=== PATIENT | female | born 1965 | race Caucasian/White ===

== ENCOUNTER 2016-05-25 15:22 | Observation (INO) | payer OTHER ==
[2016-05-25] VITALS (10 sets, daily range): BP systolic 102–160; BP diastolic 49–112; PULSE 81–109; RESP 12–18; O2SAT 95–100
[~2016-05-25] VITALS: Ht 157.5 cm; Wt 90.0 kg
[~2016-05-25 15:22] MED LIST: Dexamethasone 4 mg/mL Inj ONE; Glycopyrrolate 0.2 MG/ML 1mL Inj ONE; HYDR25TA4 PO; LISI-567 PO; MetoCLOpramide 5 mg/mL 2 mL Inj ONE; Neostigmine 1 mg/mL 10 mL Inj ONE; Ondansetron 2 mg/mL 2 mL Inj ONE; Phenylephrine 10,000 mCg/mL Inj ONE; Propofol 10,000 mCg/mL 20 mL Inj ONE; Rocuronium 10 mg/mL 5 mL Inj ONE; fentaNYL-PF 50 mCg/mL 2 mL Inj ONE
[2016-05-25 15:57] LABS: BASOPHILS % (AUTO) 0.1 % (0-3); EOSINOPHILS % (AUTO) 0.3 % (0-5); MONOCYTES % (AUTO) 7.5 % (4-12); Mean Corpuscular Hemoglobin 28.6 pg (27.0-35.0); Mean Corpuscular Volume 84.2 fL (81-100); NEUTROPHILS % (AUTO) 75.4 % (40-74); Platelet Count 302 bil/L (150-400)
--- NOTE | 2016-05-25 16:17 | DRSVH ---
PROCEDURE: X-RAY CHEST ONE VIEW, PORTABLE ([id number]) INDICATIONS: CHEST PAIN TECHNIQUE: One view of the chest was acquired. COMPARISON: [facility], , CHEST 1VW (PORTABLE), 02/08/2013, 20:24. FINDINGS: Surgical changes and devices: None. Lungs and pleura: Aeration of the lungs is similar to the prior study. There may be mild left basila r scarring/atelectasis. No focal consolidation, effusion, or pneumothorax is evident. Mediastinum: Mediastinal contours appear normal. Heart size is normal. Bones and chest wall: No suspicious bony lesions. Overlying soft tissues appear unremarkable. IMPRESSION: Stable chest. No acute cardiopulmonary process is evident. Dictated by: Haroon Chatman M.D. on 05/25/2016 at 15:15 Approved by: Haroon Chatman M.D. on 05/25/2016 at 15:16
[2016-05-25 16:32] LABS: TROPONIN T 0.01 ug/L (0.0-0.011)
--- NOTE | 2016-05-25 16:37 | ED.REPORT ---
HPI-Chest Pain 40 and Over Date of Service May 25, 2016 ED Provider: Kelton Moreno DO Pt is a healthy 51 y/o female w/ a hx of HTN, presenting to the ED c/o epigastric abdominal pain with radiation to the chest onset today. She experienced several episodes of nausea and vomiting 2 days ago. Pt denies fever , chills, SOB, CP. She has never experienced heartburn before. Nursing Notes Stated Complaint: CHEST PAIN, NAUSEA Chief Complaint: Dysrhythmia/Cardiac Nursing Notes Reviewed: Yes Allergies: Coded Allergies: No Known Allergies (Verified Allergy, Unknown, 05/25/16) Scheduled Hydrochlorothiazide (Hydrochlorothiazide) 25 Mg Tablet 25 MG PO DAILY Lisinopril (Lisinopril) 20 Mg Tablet 20 MG PO DAILY General Time Seen by MD: 16:35 Chief Complaint Other (Epigastric pain) Hx Obtained From: Patient Arrived By: Walk-in Sudden in Onset?: No Onset Occurred: 5 - 8 hours ago Symptom Duration: Since onset Location: : Epigastric Quality: Painful Severity: Current: Moderate Severity: Maximum: Moderate Similar Sx Previous: No Past Medical History Past Medical History Hypertension LBBB Past Surgical History Tonsillectomy Smoking History Never Smoker Ambulatory Status Independent Review of Systems Constitutional: Denies: Chills, Fever Respiratory: Denies: Non-productive cough, Shortness of breath Cardiovascular: Denies: Chest pain, Dyspnea on exertion GI: Reports: Abdominal pain, Nausea, Vomiting, Denies: Diarrhea Complete sys rev & neg: except as marked. Physical Exam Initial Vital Signs Vital Signs (First) Date Time Temp Pulse Resp B/P Pulse Ox O2 Delivery O2 Flow Rate FiO2 05/25/16 15:30 36.7 109 18 160/112 98 Room Air Initial VS: Reviewed, Vital signs abnormal Head / Eyes: Atraumatic, Normocephalic, PERRL ENT: Mucous membranes moist, Conjunctiva normal, No scleral icterus Neck: Supple, Full range of motion Extremities: Vascular intact, Neuro intact, No swelling, No tenderness Skin: Warm, Dry, No cyanosis Neurologic: Alert, Oriented, Nonfocal Psychiatric: Mood/affect normal, Behavior normal, Normal thought content General/Constitutional: Awake, Alert, No acute distress, Cooperative, Not toxic appearing Respiratory / Chest: Atraumatic, Breath sounds NL, Breath sounds = bilat, No respiratory distress, No rales, No rhonchi, No wheezing, No retractions, No stridor, No chest tenderness, No chest wall deformity, No crepitus Cardiovascular: Heart rate NL, Regular rhythm, Heart sounds NL, No gallop, No murmurs, No rubs, Cap refill not delayed, Peripheral circulation NL Abdomen: Atraumatic, Soft, No guarding, No rebound, No distention, No palpable mass Upper abdominal tenderness Interpretation & Diagnostics Lab Results Interpretation Result Diagram: 05/25/16 1552 05/25/16 1552 Test 05/25/16 15:52 White Blood Count 17.3th/mm3 (3.8-10.1) Red Blood Count 5.25mil/mm3 (3.90-5.20) Hemoglobin 15.0g/dL (12.0-15.6) Hematocrit 44.2% (35.0-46.0) Mean Corpuscular Volume 84.2fL (81-100) Mean Corpuscular Hemoglobin 28.6pg (27.0-35.0) Mean Corpuscular Hemoglobin Concent 33.9% (32.0-37.0) Red Cell Distribution Width 13.4% (12.3-15.4) Platelet Count 302bil/L (150-400) Neutrophils (%) (Auto) 75.4% (40-74) Lymphocytes (%) (Auto) 16.5% (14-46) Monocytes (%) (Auto) 7.5% (4-12) Eosinophils (%) (Auto) 0.3% (0-5) Basophils (%) (Auto) 0.1% (0-3) Sodium Level 138mEq/L (134-144) Potassium Level 3.5mEq/L (3.5-5.2) Chloride Level 95mEq/L (97-108) Carbon Dioxide Level 26mmol/L (18-29) Blood Urea Nitrogen 15mg/dL (6-24) Creatinine 0.89mg/dL (0.57-1.00) Estimat Glomerular Filtration Rate 96mL/min (>59) Glucose Level 126mg/dL (60-99) Calcium Level 10.2mg/dL (8.5-10.1) Magnesium Level 2.0mg/dL (1.6-2.6) Total Bilirubin 0.8mg/dL (0.0-1.2) Aspartate Amino Transf (AST/SGOT) 12U/L (0-50) Alanine Aminotransferase (ALT/SGPT) 13U/L (0-32) Alkaline Phosphatase 83U/L (25-150) Troponin T 0.010ug/L (0.0-0.011) Total Protein 8.6g/dL (6.4-8.4) Albumin 4.5g/dL (3.4-5.0) Lipase 19U/L (13-60) Hold Chaudhry Top Tube Received (Received) ECG Interpretation ECG Interpretation: Sinus rhythm rate 92 LBBB No change from EKG from 2012 Time: 16:59 Interpreted by: ED physician Normal ECG Interpretation: No acute ischemic changes, No change from prior ECGs X-Ray Chest Interpretation Chest Xray Interpretation: IMPRESSION: Stable chest. No acute cardiopulmonary process is evident. Dictated by: Haroon Chatman M.D. on 05/25/2016 at 15:15 Approved by: Haroon Chatman M.D. on 05/25/2016 at 15:16 View: Portable, 1 view Interpretation / Wet Read by: Interpret - Radiologist CT Abd / Pelvis Interpretation IMPRESSION: 1. Cholelithiasis and findings suspicious for acute cholecystitis. 2. Normal appendix. 3. Diverticulosis. No acute diverticulitis. These findings were discussed with Dr. Whitley at 5:52 PM on 05/25/16. Dictated by: Aletha Merida M.D. on 05/25/2016 at 17:48 Approved by: Aletha Merida M.D. on 05/25/2016 at 17:57 Study type: Abdominal CT IV contrast Interpretation / Wet Read by: Interpret - Radiologist, Discussed w radiologist Re-Eval/Medical Decision Med Decision/Clinical Course Acute cholecystitis will be admitted. Time of Eval: 17:58 Re-Evaluation/Progress Note: Pt rechecked. Informed pt of need for admission for surgical management. Pt understands and agrees with plan for admission. All questions addressed. Consultation : Referral / Consult Name: Gonzalez Christopher MD Consulted With: Surgeon Call Returned at: 17:59 Mailing Machine Helper: Will see patient, Agrees with eval, Agrees with plan, Accepts admit Counseled Regarding: Diagnosis, Lab results, Need for admission Discharge & Departure Primary Impression: Acute cholecystitis Disposition: ADMITTED TO HOSPITAL Discharge Condition All VS Reviewed: Yes Condition: Stable Referrals: Migue Burnham MD (PCP) Scribe Attestation Portions of this note were transcribed by Felice Stokes. I, Dr. Moreno, personally performed the history, physical exam and medical decision-making; I reviewed and confirmed the accuracy of the information in the transcribed note. Signed by Vani Escobar, 05/25/16 - [id number] copies to: Migue Burnham MD, Timothy S DO May 25, 2016 16:37 FELICE STOKES May 25, 2016 16:43
[2016-05-25] MEDS ORDERED: Ondansetron 2 mg/mL 2 mL Inj IVPUSH PRN ×4 (16:45→22:45)
[2016-05-25] MEDS ORDERED: 0.9% Sodium Chloride 1,000 ML IV ONE (16:45)
[2016-05-25] MEDS ORDERED: LidocaineVisc 2%:Antacid 1:1 10 mL Syringe PO ONE (16:45)
[2016-05-25] MEDS ORDERED: diphenhydrAMINE 2.5 mg/mL 5 mL Syrup ONE (16:51)
[2016-05-25] MEDS ORDERED: Alum-Mag Hydrox-Simeth 30 mL Suspension ONE (16:51)
--- NOTE | 2016-05-25 17:59 | DRSVH ---
PROCEDURE: CT ABDOMEN AND PELVIS WITH CONTRAST ([id number]) INDICATIONS: upper abd pain, leukocytosis TECHNIQUE: After the administration of intravenous contrast, 5 mm thick sections acquired from the diaphragm to the symphysis. 5 mm coronal and sagittal reformats were acquired. For radiation dose reduction, the following was used: automated exposure control, adjustment of mA and/or kV according to patient siz e. COMPARISON: None. FINDINGS: Image quality: Excellent. ABDOMEN: Lung bases: Lung bases are clear. Heart size is normal. Solid organs: Liver and spleen are normal in size and enhancement. Gallbladder wall measures up to 10 mm in thickness. There is a moderate amount of pericholecystic fat stranding at the gallbladder fu ndus. A lamellated calcified 2.7 cm diameter stone is present in the gallbladder fundus. Biliary sys tem is non dilated. Pancreas enhances normally. No adrenal nodules. Kidneys demonstrate normal siz e and enhancement, without hydronephrosis. Peritoneum and bowel: Bowel loops demonstrate normal wall thickness and caliber. The appendix is thi n walled and gas filled. There are extensive sigmoid colon diverticular outpouchings there is no muco lora thickening or pericolonic fat stranding to suggest acute diverticulitis. No free fluid or air. Nodes and vessels: No retroperitoneal or mesenteric adenopathy by size criteria. Aorta and inferior vena cava are normal in size. Miscellaneous: No ventral hernias. PELVIS: Genitourinary: Bladder wall thickness is normal. Uterus and ovaries are grossly unremarkable. Miscellaneous: No inguinal hernias or adenopathy. Bones: No suspicious bony lesions. No vertebral body compression fractures. IMPRESSION: 1. Cholelithiasis and findings suspicious for acute cholecystitis. 2. Normal appendix. 3. Diverticulosis. No acute diverticulitis. These findings were discussed with Dr. Whitley at 5:52 PM on 05/25/16. Dictated by: Aletha Merida M.D. on 05/25/2016 at 17:48 Approved by: Aletha Merida M.D. on 05/25/2016 at 17:57
[2016-05-25] MEDS ORDERED: metroNIDAZOLE Inj 1,000 MG in IV Premix 1 EACH IV ONE (18:10)
[2016-05-25] MEDS ORDERED: levoFLOXacin Inj 750 MG in IV Premix 1 EACH IV ONE (18:10)
[2016-05-25] MEDS: 0.9% Sodium Chloride 1,000 ML IV SCH (19:26)
[2016-05-25] MEDS ORDERED: Alum-Mag Hydrox-Simeth 30 mL Suspension PO PRN (19:30)
--- NOTE | 2016-05-25 19:40 | HP ---
[address] [address] HISTORY AND PHYSICAL PATIENT: EDIE WINN : 1965 MR#: [id number] ADMIT: 05/25/2016 JOB ID: [id number] DATE: 05/25/2016 CHIEF COMPLAINT: Abdominal pain. HISTORY OF PRESENT ILLNESS: The patient is a 51-year-old woman who presented to the emergency department today with worsening upper abdominal pain. Her pain started fairly suddenly on Monday and has persisted since that time. Initially, she thought she had food poisoning as she had pain in the epigastrium, but it was associated with profuse vomiting. She had trouble keeping anything down by mouth. The pain and vomiting persisted and then today she has not had any more emesis, but the pain is characterized as a band across her upper abdomen and lower chest. She has had difficulty taking deep breaths. She continues to have nausea and diminished appetite. She has had some chills, but has not had documented fevers. She has never been jaundiced. She has had mild indigestion over the years but no documented episodes of persistent pain like this. She was evaluated with a CT scan of the abdomen and pelvis with contrast. This showed findings consistent with acute cholecystitis. She had a large 2.7 cm lamellated calcified gallstone and marked gallbladder wall thickening to 10 mm with pericholecystic fat stranding. There was extensive sigmoid diverticula but no other acute findings. PAST MEDICAL HISTORY: Hypertension. PAST SURGICAL HISTORY: None. MEDICATIONS: 1. Hydrochlorothiazide. 2. Lisinopril. ALLERGIES: No known drug allergies. SOCIAL HISTORY: She works as a caregiver. She denies tobacco use. She drinks approximately one alcoholic beverage per week and denies illicit drug use. FAMILY HISTORY: Positive for gallstones. REVIEW OF SYSTEMS: A 10-point review of systems is negative except as described in history of present illness. PHYSICAL EXAMINATION: Body mass index is 36.3, temperature 36.7, pulse 109, respirations 18, blood pressure 160/112, saturation 98% on room air. In general, she is mildly flushed but in no acute distress. HEENT: Sclerae are anicteric. Mucous membranes are moist. Neck: No lymphadenopathy. Chest: Clear to auscultation bilaterally. Heart: Tachycardia, no murmurs. Abdomen: Obese, nondistended. She has tenderness in the right upper quadrant but no involuntary guarding. There are no palpable masses and there are no hernias. Extremities: No edema. Neuro: No deficits. Psychiatric: Affect is appropriate. LABORATORIES: White count is 17.3, hematocrit 44.2, platelets 302, creatinine 0.89, glucose 126, bilirubin 0.8, AST 12, ALT 13, alkaline phosphatase 83, lipase 19. IMAGING: As described in history of present illness. ASSESSMENT AND PLAN: A 51-year-old woman with morbid obesity with acute cholecystitis. I have had a long discussion with her about the pathophysiology of gallbladder disease. I recommend that we proceed to surgery tonight for cholecystectomy. I am recommending a laparoscopic cholecystectomy with intraoperative cholangiogram, possible open. Informed consent was obtained. Risks of surgery were discussed, including, but not limited to, bleeding, infection, injury to the bile ducts, conversion to open surgery. The typical postoperative recovery was discussed. The plan will be to keep her in the hospital overnight and if the operation is able to be done laparoscopically and she is doing well tomorrow, she could go home at that time.
[2016-05-25] MEDS ORDERED: Lactated Ringer's 1,000 ML IV ONE ×2 (21:20→23:17)
[2016-05-25] MEDS ORDERED: Lactated Ringer's 1,000 ML IV SCH (21:58)
[2016-05-25] MEDS ORDERED: Lactated Ringer's 500 ML IV PRN (21:58)
[2016-05-25] MEDS ORDERED: MetoCLOpramide 5 mg/mL 2 mL Inj IVPUSH PRN ×2 (22:00→22:45)
[2016-05-25] MEDS ORDERED: Labetalol 5 mg/mL 4 mL Inj IV PRN (22:00)
[2016-05-25] MEDS ORDERED: fentaNYL-PF 50 mCg/mL 2 mL Inj IVPUSH PRN (22:00)
[2016-05-25] MEDS ORDERED: HYDROmorphone 1 mg/mL Inj IVPUSH PRN (22:00)
[2016-05-25] MEDS ORDERED: Phenylephrine 10,000 mCg/mL Inj IVPUSH PRN (22:00)
[2016-05-25] MEDS ORDERED: EPHEDrine Sulfate 50 mg/mL Inj IVPUSH PRN (22:00)
[2016-05-25] MEDS ORDERED: Atropine 0.4 mg/mL Inj IVPUSH PRN (22:00)
--- NOTE | 2016-05-25 22:02 | PCM.HPANE ---
Patient Data Surgeon Admitting Provider:Coco Christopher DO Attending Provider:Coco Christopher DO Primary Care Physician:Migue Burnham MD Other Provider:Liz Gutierrez Anesthesia Reason for Visit Acute Cholecystitis Ht/WT & BMI Height (Feet): 5 Height (Inches): 2.00 Weight (Kilograms): 90.000 Body Mass Index 36.51 Allergies Coded Allergies: No Known Allergies (Verified Allergy, Unknown, 05/25/16) Past Anesthesia History Anesthesia History: Denies:: Abnormal Airway, Anesthesia Reactions, Difficult Intubation, Fam Anesthesia Reaction, Fam Malignant Hypertherm, Malignant Hyperthermia Diabetes History Hx Diabetes?: No MRSA MRSA: No Medications Reported Medications Lisinopril 20 Mg [id number] Mg PO QPM 05/14/15 Hydrochlorothiazide 25 Mg [id number] Mg PO QPM 05/14/15 History History of ENT Problems?: Yes HEENT History: Denies:: Abnormal Airway Difficult Intubation Hearing Problem Other HEENT Pertinent History: hx tonsillectomy Hx of Heart Problems?: Yes Cardiovascular History: Positive for:: Chest Pain Hypertension Denies:: AICD Atrial Fibrillation Congestive Heart Failure Pacemaker Valvular Heart Disease Hx of Respiratory Problem?: No Respiratory History: Denies:: Tuberculosis Hx Neurologic Problems?: No Neurological History: Denies:: CVA Hx of GI Problems?: Yes Gastrointestinal History: Positive for:: Diverticulitis (diverticulosis) Other GI Pertinent History: current dx: acute sammy s/p polyp removal during routine colonoscopy Hx of Problems?: No Female Hx: Denies:: Currently Endometriosis Pelvic Inflammatory Problems with Breasts? Hx Musculoskeletal Problems?: No Musculoskeletal History: Denies:: Joint Replacement Hx of Psycho/Social Problems?: No Psycho Social History: Denies:: Anxiety Hx Depression Hx Surgeries?: Yes (tonsillectomy) Hx Any Other Health Problems?: Yes Other History: Denies:: Cancer Hospitalization Thyroid Disease History Blood Transfusions: Positive for:: Accept Blood Products? Denies:: Blood Transfusions Hx Diabetes: No Hx Alcohol Use: Yes (OCASSIONALLY)Hx Substance Use: No Smoking Status: Never Smoker Have You Smoked inLast 12 mo: No Stop/Bang Treated for Sleep Apnea?: No Do You Have a CPAP Machine?: No S-Snoring: Do You Snore Loudly: No T-Tired: feel tired, fatigued: No O-Obsered: Observed not breath: No P-Blood Pressure: treated: Yes B- Body Mass Index > 35 kg/m2: Yes A- Age over 50: Yes N- Neck Large Circumference: No G- Gender Male: No SANJAY Total Score: 3 Risk Assessment Category Category 1A: Patient has history of documented sleep apnea, and HAS NOT received any narcotic, sedative or anesthesia administration during this stay. Category 1B: Patient has history of documented sleep apnea, and HAS received any narcotic , sedative or anesthesia administration during this stay Category 2: Patient has SUSPECTED Obstructive Sleep Apnea, and HAS received any narcotic , sedative or anesthesia administration during this stay. Category 3: Patient has SUSPECTED Obstructive Sleep Apnea and HAS NOT received narcotic, sedative or anesthesia administration during this stay. Category 4: Outpatient in Procedural Areas with known sleep apnea or who screen positive for High Risk via the STOP/BANG questionnaire. Exam Exam Vital Signs Vital Signs Date Time Temp Pulse Resp B/P Pulse Ox O2 Delivery O2 Flow Rate FiO2 05/25/16 20:03 37.9 100 14 160/94 95 Room Air 05/25/16 20:02 37.2 102 18 148/90 97 Room Air 05/25/16 19:12 37.9 98 18 154/105 96 Room Air 05/25/16 15:30 36.7 109 18 160/112 98 Room Air General Appearance: Alert, Oriented X3, Cooperative, No Acute Distress HEENT/AIRWAY: MP 2, Neck Movement (FROM), Mouth Opening Lungs: Clear to Auscultation, Normal Air Movement Heart: Exam Unremarkable, Regular Rate/Rhythm, No Murmurs/Rubs/Gallops Meds/Labs/Diagnostics Admission Meds Current Medications Sodium Chloride (Normal Saline) 1,000 ml @ 0 mls/hr Q0M ONCE IV Last administered on 05/25/16 17:36; Start 05/25/16 at 16:45; Stop 05/25/16 at 16:46 ; Status DC Al Hydrox/Mg Hydrox/Simethicone (Maalox Plus) 30 ml STK-MED ONCE .ROUTE Last administered on 05/25/16 17:12; Start 05/25/16 at 16:51; Stop 05/25/16 at 16:52 ; Status DC Diphenhydramine HCl (Benadryl Syrup) 12.5 mg STK-MED ONCE .ROUTE Last administered on 05/25/16 17:12; Start 05/25/16 at 16:51; Stop 05/25/16 at 16:52 ; Status DC Lidocaine HCl 15 ml 15 ml STK-MED ONCE .ROUTE Last administered on 05/25/16 17 :13; Start 05/25/16 at 16:51; Stop 05/25/16 at 16:52; Status DC Levofloxacin/ Dextrose 750 mg/ Premix 150 ml @ 100 mls/hr ONCE ONCE IV Last administered on 05/25/16 19:30; Start 05/25/16 at 18:10; Stop 05/25/16 at 19:39 ; Status DC Metronidazole/ Sodium Chloride/ Premix (Flagyl Inj/IV Premix) 200 ml @ 200 mls/ hr ONCE ONCE IV Last administered on 05/25/16 18:19; Start 05/25/16 at 18:10 ; Stop 05/25/16 at 19:09; Status DC Labs Test 05/25/16 15:52 White Blood Count 17.3th/mm3 (3.8-10.1) Red Blood Count 5.25mil/mm3 (3.90-5.20) Hemoglobin 15.0g/dL (12.0-15.6) Hematocrit 44.2% (35.0-46.0) Mean Corpuscular Volume 84.2fL (81-100) Mean Corpuscular Hemoglobin 28.6pg (27.0-35.0) Mean Corpuscular Hemoglobin Concent 33.9% (32.0-37.0) Red Cell Distribution Width 13.4% (12.3-15.4) Platelet Count 302bil/L (150-400) Neutrophils (%) (Auto) 75.4% (40-74) Lymphocytes (%) (Auto) 16.5% (14-46) Monocytes (%) (Auto) 7.5% (4-12) Eosinophils (%) (Auto) 0.3% (0-5) Basophils (%) (Auto) 0.1% (0-3) Sodium Level 138mEq/L (134-144) Potassium Level 3.5mEq/L (3.5-5.2) Chloride Level 95mEq/L (97-108) Carbon Dioxide Level 26mmol/L (18-29) Blood Urea Nitrogen 15mg/dL (6-24) Creatinine 0.89mg/dL (0.57-1.00) Estimat Glomerular Filtration Rate 96mL/min (>59) Glucose Level 126mg/dL (60-99) Calcium Level 10.2mg/dL (8.5-10.1) Magnesium Level 2.0mg/dL (1.6-2.6) Total Bilirubin 0.8mg/dL (0.0-1.2) Aspartate Amino Transf (AST/SGOT) 12U/L (0-50) Alanine Aminotransferase (ALT/SGPT) 13U/L (0-32) Alkaline Phosphatase 83U/L (25-150) Troponin T 0.010ug/L (0.0-0.011) Total Protein 8.6g/dL (6.4-8.4) Albumin 4.5g/dL (3.4-5.0) Lipase 19U/L (13-60) Hold Chaudhry Top Tube Received (Received) Plan Impression Patient chart reviewed, patient interviewed and anesthestic plan with risks, benefits, and alternatives discussed, and informed consent obtained. NPO Status: > 8hrs ASA Physical Status: ASA2 Mod Systemic Disease Anesthetic Plan: GA Bene/Risks/Altern/Consents: Yes HP Complete Prior to Induction: Yes Jean Carlos Mcnamara MD May 25, 2016 21:24
[2016-05-25] MEDS ORDERED: Bupivacaine-MPF 0.5% W/EPI 30 mL Inj INFILTRATE ONE (22:09)
[2016-05-25] MEDS ORDERED: Iopamidol-300 50 mL Inj IV ONE (22:09)
[2016-05-25] MEDS ORDERED: HYDROmorphone 0.5 mg/0.5 mL iSecure Syringe IVPUSH PRN (22:45)
--- NOTE | 2016-05-25 22:52 | PCM.SURGOP ---
Surgical Operative Report Date of Service: May 25, 2016 Pre Operative Diagnosis Acute calculus cholecystitis Post Operative Diagnosis Same Procedure: Laparoscopic cholecystectomy with intraoperative cholangiogram Surgeon and Foam Molder: Surgeon: Gonzalez Christopher MD Assistants: Jyoti Chaves Indication for Procedure 51-year-old woman who presented to the emergency department with severe upper abdominal pain that started on Monday with profuse vomiting. She had a white blood cell count of 17. Liver function tests were normal. A CT scan of the abdomen and pelvis showed a large 2.7 cm gallstone with marking gallbladder wall thickening to 1.0 cm. After discussion of risks and benefits, she agreed to proceed with cholecystectomy. Findings: The gallbladder was acutely edematous and inflamed. There was a large gallstone. The liver was normal. The intraoperative cholangiogram was normal. Procedure Details After smooth induction of general endotracheal anesthesia, the patient was placed in the supine position with the right arm tucked. A procedural pause was performed according to the SCOAP checklist, and all were found to be in agreement. A curvilinear infraumbilical incision was made. Dissection was carried down with electrocautery until the midline fascia was incised vertically, and the peritoneal cavity entered without difficulty. Pneumoperitoneum was established. Inspection revealed some inflammatory adhesions to the fundus of the gallbladder. 3 additional ports were placed under direct visualization. One was placed in the midline epigastrium, and 2 in the right subcostal region. Adhesions were taken down from the gallbladder fundus with electrocautery. The gallbladder was edematous and acutely inflamed, fairly tense, but it was able to be grasped with a grasper. The fundus of the gallbladder was then grasped and retracted cephalad. The infundibulum of the gallbladder was grasped. The peritoneum was incised. The cystic artery was doubly clipped and divided. The critical view was obtained using the infundibular technique. A clip was placed on the gallbladder side of the cystic duct and a cystic ductotomy was made. A cholangiogram was obtained using the 5 Martiniquais cholangiocatheter. This demonstrated a normal cystic duct, normal ductal anatomy, normal flow into the duodenum. The cholangiocatheter was removed. 2 clips were placed on the common bile duct side of the cystic duct ductotomy, and the duct was divided with scissors. The remainder of the gallbladder was dissected out of the gallbladder fossa with electrocautery. The gallbladder was placed into an Endo Catch bag and removed from the umbilical port site. The fascia at the umbilicus had to be incised to allow removal of the large 2.7 cm gallstone in the gallbladder. It was passed off the field and sent for permanent pathology. The gallbladder fossa was inspected and irrigated. Hemostasis was adequate, and there was no bile leak. The ports were removed under direct visualization and pneumoperitoneum was released. The fascia of the umbilical port site was closed with a series of 0 Vicryl suture in a figure- of-eight. A total of 4 Vicryl sutures were placed to achieve good fascial closure. The skin incisions were closed using running 4-0 Monocryl subcuticular stitches. Steri-Strips and sterile dressings were applied. At the end of the case all needle and sponge counts were correct 2. The patient was awakened from anesthesia without difficulty, and taken to the recovery room in satisfactory condition, having tolerated the procedure well. Complications There were no periprocedural complications identified. Surgical Specimen Removed: Yes Specimen sent to Pathology: Yes Surgical Specimen description: Gallbladder Anesthetic Plan: GA Grafts, Implants: None Output, Estimated Blood Loss: 20 Blood Administration during singh: No Drains: None Catheters: None copies to: Migue Burnham MD, Joshua D MD May 25, 2016 22:52
--- NOTE | 2016-05-25 23:04 | PCM.ANEP1 ---
Post Anesthesia Phase 1 PACU Phase 1 Assessment Date of Service: May 25, 2016 Vital Signs Vital Signs Date Time Temp Pulse Resp B/P Pulse Ox O2 Delivery O2 Flow Rate FiO2 05/25/16 22:58 37.9 92 15 126/51 100 Simple Mask 8 05/25/16 20:03 37.9 100 14 160/94 95 Room Air 05/25/16 20:02 37.2 102 18 148/90 97 Room Air 05/25/16 19:12 37.9 98 18 154/105 96 Room Air 05/25/16 15:30 36.7 109 18 160/112 98 Room Air Anesthetic Administered: GA Level of Alertness: Awake, talking POTTS's with Equal Strength: Yes Pain: Yes Pain Scale Score: 6 Nausea or Vomiting: No Oxygen Delivery: Simple Mask Lungs: Clear to Auscultation, Normal Air Movement Dermatome Level: Full Sensation Jean Carlos Mcnamara MD May 25, 2016 23:04
--- NOTE | 2016-05-25 23:04 | PCM.ANEP2 ---
Post Anesthesia Evaluation ASA/CMS Post Anesthesia VS in Patient's Normal Range?: Yes Resp Stable; Airway Patent?: Yes CV Function & Hydration Stable: Yes Mental Status Recovered?: Yes Pain control Satisfactory?: Yes N/V Control Satisfactory?: Yes Jean Carlos Mcnamara MD May 25, 2016 23:04
[2016-05-25] MEDS: Dextrose 5% Lactated Ringer's 1,000 ML IV SCH (23:48)
[2016-05-26 05:09] VITALS: BP 98/55; PULSE 63; RESP 18; O2SAT 97
[2016-05-26] MEDS: 0.9% Sodium Chloride 1,000 ML IV SCH (05:17)
--- NOTE | 2016-05-26 05:46 | NUR ---
Admit Patient arrived from ED at 2000, Family waiting at bedside. Oriented to room by Aide. OR called requested information on last meal, according to patient, she ate light lunch shortly after noon having sips of water until arrival to ED at 1520. Given pain medication on this unit shortly before being sent to OR. Returned from OR at 2335, at this time patient denied Pain of any kind, puncture wounds were CDI. Patient able to sleep comfortably through out remainder of night with out PRNs.
--- NOTE | 2016-05-26 06:34 | PCM.DISURG ---
Surgical Discharge Instruction Date of Service May 26, 2016 Dates of Hospitalization Date of Hospital Admission May 25, 2016 at 19:15 Providers Admitting Physician: Gonzalez Christopher MD Primary Care Physician: Migue Burnham MD Attending Physician: Coco Christopher DO Discharge Diagnosis Discharge Diagnosis acute calculous cholecystitis Post Operative diagnosis Same Diet Discharge Diet: No restrictions Activity Discharge Activity-General: No lifting >15 pounds for 2 weeks Dressing and Incisional Care Dressing Care: Allow Steri Stripes to fall off, Remove outer dressing after 24 hrs Hygiene: May shower Follow Up Plan Follow Up Plan in the [facility] postop clinic in 2 weeks Call your provider for: Fever (over 101.5F), Vomiting, Discharge @ incision, pus discharge Gonzalze Christopher MD May 26, 2016 06:34
[2016-05-26] MEDS ORDERED: OXYC5TAB72 PO (06:35)
[2016-05-26] MEDS ORDERED: POLY17PO6 PO (06:35)
[2016-05-26 07:05] LABS: BASOPHILS % (AUTO) 0.1 % (0-3); EOSINOPHILS % (AUTO) 0 % (0-5); MONOCYTES % (AUTO) 5.6 % (4-12); Mean Corpuscular Hemoglobin 28.1 pg (27.0-35.0); Mean Corpuscular Volume 85.8 fL (81-100); NEUTROPHILS % (AUTO) 87.2 % (40-74); Platelet Count 243 bil/L (150-400)
[2016-05-26 08:03] VITALS: BP 116/71; PULSE 57; RESP 16; O2SAT 93
--- NOTE | 2016-05-26 08:40 | PROG NOTE ---
[address] [address] PROGRESS NOTE PATIENT: EDIE WINN : 1965 MR#: [id number] ADMIT: 05/25/2016 JOB ID: [id number] DATE: 05/26/2016 SUBJECTIVE: The patient is seen in followup. She is doing well clinically. She has no abdominal pain. She has no nausea. OBJECTIVE: Temperature 36.7, pulse 57, blood pressure 116/71, saturation 93% on room air. General: She is resting in bed in no acute distress. Chest is clear. Heart: Regular rate and rhythm. No murmurs. Abdomen is soft, nondistended. Her incisions are clean with no erythema. LABORATORIES: White blood cell count is 11.6, hematocrit 37.5, platelets 243, creatinine 0.70, glucose 199, bilirubin 1.0. ASSESSMENT AND PLAN: A 51-year-old woman with acute calculous cholecystitis, postoperative day one, status post laparoscopic cholecystectomy with intraoperative cholangiogram. She is doing well clinically. She does not need additional antibiotics. She will be discharged to home today. She will followup in general surgery clinic in two weeks for a wound check.
--- NOTE | 2016-05-26 08:53 | DRSVH ---
PROCEDURE: X-RAY OPERATIVE CHOLANGIOGRAM ([id number]) INDICATIONS: CHOLECYSTITIS COMPARISON: [facility], CT, CT ABD PELVIS W CON, 05/25/2016, 17:39. FINDINGS: Biliary ducts: The surgeon injected contrast into the biliary ducts after cannulation of the cystic duct stump. Visualized intra- and extrahepatic bile ducts are normal in caliber, without strictures. Several small intraluminal filling defects seen within the mid to distal common bile duct. No evid ence for iatrogenic ductal injury. Duodenum: Contrast flows promptly through the sphincter of Oddi into the duodenum, which appears nor mal in caliber. IMPRESSION: Small intraluminal filling defects which may be related to gas bubbles but retained stone s and/or sludge cannot be excluded. Correlate with real-time examination. Dictated by: Jono COOLEY Interpreted: Teresita Ndiaye MD on 05/26/2016 at 8:53 Transcribed by: VICTORINA on 05/26/2016 at 8:53 Approved by: Teresita Ndiaye MD, PhD on 05/26/2016 at 16:27
--- NOTE | 2016-05-26 09:22 | NUR ---
Social Work- Brief Note Data: EMR reviewed. Pt is a 51 year old female admitted 05/25/16 for acute cholecystitis per H&P. Pt is POD 1. Pt's insurance is [employer], PCP is Migue Burnham MD. Pt resides in [place] with her where she remains independent with ADLs. Pt uses no DME. Pt has no DPOA on file. Pt anticipated to discharge home with via POV when medically stable. No anticipated discharge needs. SW will continue to follow. Assessment: [place]. Plan: Pt anticipated to discharge home with via POV when medically stable. No anticipated discharge needs. SW will continue to follow. JAKI Steward
[2016-05-26 09:44] VITALS: PULSE 71; RESP 16; O2SAT 95
[2016-05-26] MEDS: Dextrose 5% Lactated Ringer's 1,000 ML IV SCH (11:14)
--- NOTE | 2016-05-26 11:51 | PCM.DC.SUR ---
Discharge Summary Date of Service: May 26, 2016 Date of Hospital Admission: May 25, 2016 at 19:15 Date of Operation(s): May 25, 2016 Date of Discharge: May 26, 2016 Diagnosis at Time of Discharge Acute calculus cholecystitis Problems: (1) Acute cholecystitis Status: Acute ICD Code: K81.0 (2) Status post laparoscopic cholecystectomy Status: Acute ICD Code: Z90.49 Operation Laparoscopic cholecystectomy with intraoperative cholangiogram Brief History and Physical: SUBJECTIVE: The patient is seen in followup. She is doing well clinically. She has no abdominal pain. She has no nausea. OBJECTIVE: Temperature 36.7, pulse 57, blood pressure 116/71, saturation 93% on room air. General: She is resting in bed in no acute distress. Chest is clear. Heart: Regular rate and rhythm. No murmurs. Abdomen is soft, nondistended. Her incisions are clean with no erythema. LABORATORIES: White blood cell count is 11.6, hematocrit 37.5, platelets 243, creatinine 0.70, glucose 199, bilirubin 1.0. Consultants: None Hospital Course: Patient taken to the operating room for a laparoscopic cholecystectomy with intraoperative cholangiogram. The procedure was performed without complication. Cholangiogram demonstrated a normal cystic duct, normal ductal anatomy, normal flow into the duodenum. The patient tolerated the procedure well and was transferred to her hospital room where she remained for the balance of her hospital stay. On postoperative day number 1 she was found to be essentially pain free, ambulating well and tolerating a diet. She was then discharged to home in good condition. Pathology: Pending at time of discharge. Disposition: Discharged to home in good condition. Follow-up Plan: Follow up in [facility] postop clinic in 2 weeks Call your provider for: Fever (over 101.5F), Vomiting, Discharge @ incision, pus discharge Hydrochlorothiazide (Hydrochlorothiazide) 25 Mg Tablet 25 MG PO QPM (Reported) Lisinopril (Lisinopril) 20 Mg Tablet 20 MG PO QPM (Reported) Polyethylene Glycol 3350 (Miralax) 17 Gm Powd.pack 17 GM PO DAILY oxyCODONE (oxyCODONE) 5 Mg Tablet 5-10 MG PO Q4H PRN PRN For Moderate Pain copies to: Migue Burnham MD; Coco Christopher Samuel L PA-C May 26, 2016 11:51
--- NOTE | 2016-05-26 13:05 | NUR ---
Social Work- Readiness for Discharge Data: EMR reviewed. Pt is on day1 of hospitalization for acute cholecystitis. Pt is POD 1. Pt is ambulating in room. SW followed up with pt at bedside regarding discharge plan. SW spoke with pt regarding DPOA, provided DPOA paperwork and brochure. Pt to discharge home with son to transport via POV. No anticipated discharge needs. SW will continue to follow if needs arise. Assessment: [place]. Plan: Pt to discharge home with son to transport via POV. No anticipated discharge needs. SW will continue to follow if needs arise. Rosa Long MSW
--- NOTE | 2016-05-26 13:50 | NUR ---
DISCHARGE Tylenol PO has been adequate for pain control. Patient stated that she just has soreness in her abdomen. Rating it as 1/10. She did not need any pain medication for this. Tolerating liquids PO and her diet well. Denies nausea. No emesis noted. Denies SOB. Patient has been ambulating in her room. Gait is steady. Voiding without any problems. IV saline lock d/cd. Discharge instructions, care notes and prescription was given to the patient and she verbalized understanding. Discharged to home with her son and all her personal belonging (Copy of D/C is in the chart).
--- NOTE | 2016-05-27 15:29 | PATH ---
SURGICAL PATHOLOGY Attending Physician:Christi Dominguez CASE STATUS: Signed Out PATIENT NAME: EDIE WINN PID: [id number] : 1965 DATE COLLECTED:05/25/2016 00:00 SPECIMEN: Gallbladder CLINICAL HISTORY: ACUTE CHOLECYSTITIS, ACUTE CHOLECYSTITIS 1) GALLBLADDER WITH CONTENTS FINAL DIAGNOSIS: Gallbladder with Contents, Cholecystectomy: Denuded gallbladder mucosa with chronic active inflammation consistent with acute cholecystitis. Cholelithiasis. No evidence of dysplasia or malignancy. ICD10 K80.60 GROSS DESCRIPTION: The specimen is received in one formalin filled container labeled with the patient's name, sublabeled "gallbladder and contents" and consists of an opened 9.5 x 4.0 x 4.0 CM gallbladder. The serosa is smooth. The wall is 0.2-0.7 CM in thickness. The mucosa is a pink-alexander to dark nunn in color. The lumen contains a dark green alexander calculus which measures 4.0 x 3.0 x 3.0 CM. 5 eligibility services representative sections are submitted in one cassette. 05/26/2016 [facility] ICD-9 CODES: CPT CODES: 1: 13599 Electronically Signed Out Della Prasad MD [facility] [address], [place] [address] Technical component performed at [facility], [address] [place] [address] Ave[address], [place], [address]
== END 2016-05-26 13:40 | disposition home or self-care (01) ==
LOC: SED 15:22 → OSC 19:15
PROVIDERS: ADMIT Student in an Organized Health Care Education/Training Program; ATTEND Family Medicine
DX: K81.0 Acute cholecystitis (principal); I10 Essential (primary) hypertension; I44.7 Left bundle-branch block, unspecified; E66.01 Morbid (severe) obesity due to excess calories; Z68.36 Body mass index [BMI] 36.0-36.9, adult